=== PATIENT | male | born 1980 | race Caucasian/White ===

== ENCOUNTER → 2016-11-24 | Day surgery (SDC) | payer MEDICARE, OTHER ==
[~2016-11-24] MED LIST: ACETAMINOPHEN PO; ADVAIR 100-501 EAC1; ALBUTEROL17 GM; ALBUTEROL17 GM INH; ALBUTEROL20 ml INH; ALLOPURINOL300 MG PO; ALPRAZOLAM PO; AMBIEN PO; AMLODIPINE BESYL5 MG PO; ANEXSIA 5/325 M1 TA1 PO; ANTI-DIARRHEAL2 M1 PO; ATIVAN; ATIVAN0.5 MG PO; AZITHROMYCIN250 MG PO; B-121000 MC1 PO; BACTRIM DS TABL1 TA1 PO; BENZONATATE PO; CELEXA PO; CLONIDINE HCL0.1 MG PO; COLACE PO; COMBIVENT INH14.7 GM INH; COMBIVENT MININEB INH; COMBIVENT RESPIM4 GM INH; COMBIVENT U/D3 M2 INH; COREG3.125 MG PO; COZAAR100 MG PO; DARVOCET-N 1001 TAB PO; DEPAKOTE PO; DIVALPROEX SOD500 M1 PO; DOXYCYCLINE HY100 M1 PO; DULERA 100 MCG/13 GM IH; DULOXETINE HCL60 MG PO; FUROSEMIDE40 MG PO; HUMIBID-LA600 MG DOB; HYDROCODON-ACE1 EAC5 PO; IMDUR-ER60 M1 PO; IMDUR-ER60 M2 PO; IMDUR-ER60 MG PO; IMODIUM2 MG PO; KCL PO; KETOPROFEN PO; KLONOPIN PO; LASIX PO; LASIX20 MG PO; LAXATIVE8.6 M1 PO; LIPITOR20 MG PO; LISINOPRIL10 MG PO; LISINOPRIL20 MG PO; LORTAB 10-3251 EACH PO; LORTAB 5/500 TA1 TA1 PO; LORTAB 7.5-5001 TAB PO; LOSARTAN POTAS100 MG PO; METFORMIN HCL500 M1 PO; METOPROLOL SUCC25 MG PO; MIDRIN CAPSULE1 CAP PO; MILK OF MAGNESIA PO; MOBIC PO; NEURONTIN PO; NEURONTIN600 MG PO; NO MEDICATIONS; NORCO 10-325 TA1 TAB PO; NORFLEX100 M1 PO; NORVASC10 MG PO; NOT TAKING MEDS; OMEPRAZOLE40 M1; OMEPRAZOLE40 M1 PO; OMEPRAZOLE40 MG PO; PANTOPRAZOLE SO40 MG PO; PHENERGAN PO; PLAVIX PO; POTASSIUM CHLO20 ME1 PO; PREDNISONE; PREDNISONE PO; PREDNISONE1 MG PO; PREDNISONE10 MG PO; PREDNISONE10 MG/DOSE PO; PRILOSEC PO; PRILOSEC20 M1 PO; PRILOSEC20 MG PO; PRINIVIL40 MG PO; PROAIR HFA8.5 GM; PROAIR HFA8.5 GM IH; PROAIR HFA8.5 GM INH; PROPRANOLOL PO; PROTONIX PO; PROTONIX40 M1 PO; QVAR7.3 GM; RISPERDAL2 MG PO; RISPERIDONE2 MG PO; SAPHRIS10 MG SL; SAPHRIS5 MG SL; SENOKOT TO GO8.6 MG PO; SEROQUEL PO; SINGULAIR PO; SYMBICORT; SYMBICORT 160/4.6 G1 IH; SYMBICORT 160/4.6 GM INH; SYMBICORT INH; SYMBICORT PO; TEGRETOL PO; THORAZINE PO; TRAZODONE PO; TUMS500 M1 PO; TUMS500 MG PO; VALPROIC ACID PO; VISTARIL PO; VISTARIL50 MG PO; VITAMIN B122500 MCG PO; VOLTAREN75 MG PO; ZITHROMAX; ZITHROMAX PO; ZYLOPRIM PO; ZYLOPRIM100 MG PO; [UNRECOGNIZED DRUG - OTHER]
--- NOTE | ~2016-11-24 | OR ---
Unit #: [id number] #: [id number] Patient: TRICE PHELPS [id number] [address] [address] [id number] O MR#: [id number] NAME: TRICE PHELPS ROOM: Date of Procedure: 11/24/2016 Admission Date: 11/24/2016 Surgeon: Mohit Reagan M.D. : 1980 Attending Physician: Mohit Reagan M.D. OPERATIVE REPORT PREOPERATIVE DIAGNOSES Dyspepsia and retrosternal heartburn as well as epigastric pain. In addition, the patient also needs a colonoscopy because he has history of hematochezia and lower abdominal pain. PROCEDURES PERFORMED Upper gastrointestinal endoscopy and biopsy as well as colonoscopy with biopsies. POSTOPERATIVE DIAGNOSES For upper endoscopy: 1. 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 2. Mild prepyloric antral erosive gastritis. This was in the form of patchy focal erythema and erosions. 3. Rest of the examination up to third part of duodenum was normal. For colonoscopy: Completely normal examination up to cecum and terminal ileum. The quality of the prep was excellent. Multiple random colonic biopsies were obtained from throughout the colon to rule out microscopic and collagenous colitis. RECOMMENDATIONS The patient will continue on pantoprazole once a day. He will be followed up in the office in 3 months' time along with the results of biopsies. SEDATION USED MAC. DESCRIPTION OF PROCEDURE Following detailed explanation of potential risks and complications of an upper endoscopy and a colonoscopy, namely perforation, bleeding, and complications related to sedation, the patient was brought to GI lab and laid in the left lateral decubitus position. Lubricated tip of the Olympus video upper endoscope was passed through the bite block into the proximal esophagus under direct vision. 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 These were in the form of tongues of columnar mucosa ascending above the gastroesophageal junction. The scope was then advanced into the gastric cavity and the latter was insufflated. Mucosa of the fundus, body, and antrum was examined and moderate patchy erythema erosions noted in the antral area. Pylorus was intubated with visualization of the normal duodenal bulb and second and third part of Unit #: [id number] #: [id number] Patient: TRICE PHELPS duodenum. Upon withdrawal and retroflexion, incisura, cardia, and greater curve was examined and a biopsy was obtained from the antrum for CLOtest. The scope was then withdrawn in the distal esophagus. Multiple biopsies were obtained from the distal esophageal mucosa from the Zaidi segment and sent for histology. The entire esophageal mucosa was examined all the way up to pharynx. No additional findings were noted. The examination table was then turned by 180 degrees and the patient positioned for a colonoscopy. A digital rectal examination was performed, which was normal. Lubricated tip of the Olympus video colonoscope was inserted through the anus and advanced under direct vision. The scope was advanced past rectosigmoid into descending colon. No diverticula were seen in this area. The scope tip was then navigated all the way up to cecum with visualization of the ileocecal valve and the appendiceal orifice. Preparation was excellent with good visualization and photodocumentation was obtained. Last several inches of terminal ileum were also visualized after intubation of the ileocecal valve and appeared normal. Successive segments of the colonic mucosa were examined upon withdrawal and appeared unremarkable. There being no polyps, mass lesions, AVMs, or diverticula. The patient did not have any hemorrhoids at the anal verge. Multiple random colonic biopsies were obtained from throughout the colon to rule out microscopic or collagenous colitis. The scope was then withdrawn. The patient returned to the recovery area. He tolerated the procedure without any postprocedure complications. Dictated by... Lester Bolivar/neyda TD: 11/24/2016 16:56 JOB #: [id number] CC: Yessenia Zarco M.D. OPERATIVE REPORT X Mohit Reagan MD X PROCEDURE OPERATIVE NOTE
--- NOTE | ~2016-11-24 | CO ---
Unit #: [id number] #: [id number] Patient: STANLEY PHELPS [id number] [facility]. [place], [place] [address] [id number] O MR#: [id number] NAME: STANLEY PHELPS ROOM: Age: 36 Sex: M Admission Date: 11/24/2016 : 1980 Attending Physician: oMhit Reagan M.D. Primary Care Physician: Generic Doctor Not In System Consultation Date: 11/23/2016 CONSULTATION REPORT REASON FOR CONSULTATION Depression and anxiety. HISTORY OF PRESENT ILLNESS Mr. Stanley Phelps is a 36-year-old male, seen on 11/23/2016. The patient seen in room 567 at [facility]. The patient was admitted with the abdominal pain, nausea, vomiting. The patient reported that he was having lot of problem with the anxiety, history of depression, but currently denied any suicidal or homicidal ideation. Denied any psychotic symptom, but reported history of depression and severe anxiety. PAST PSYCHIATRIC HISTORY Remarkable for history of depression, anxiety, bipolar disorder. History of previous treatment at [facility], last treatment on 07/11/[address] [facility] diagnosed with bipolar mood disorder, cannabis abuse, alcohol abuse, antisocial borderline traits. PAST MEDICAL HISTORY Remarkable for history of COPD, pulmonary hypertension, respiratory failure, obstructive sleep apnea noncompliant with CPAP, cerebrovascular accident, chronic headache, gout, hypertension, GERD. MEDICATIONS The patient is on Lantus, insulin, Lasix, metformin, Prilosec, Norvasc, Plavix, prednisone, and metoprolol. FAMILY HISTORY AND SOCIAL HISTORY The patient has a good support from the family. No history of any abuse. No history of any substance abuse, but in the past the patient has used alcohol. MENTAL STATUS EXAMINATION General appearance, the patient dressed casually, tall, well built. Attention span and concentration, fair. Speech, regular rate and coherent. Oriented in time, place, and person. Mood and affect were sad, dysphoric, anxious. Thought process was coherent and goal directed. Thought content, the patient denied any thoughts of harming self or others. Denied any psychotic symptom. Recent and remote memory, fair. Language, able to name object, repeat phrases. Fund of knowledge, fair. Insight and judgment, fair to slightly impaired. DIAGNOSES Psychiatric: Bipolar mood disorder, not otherwise specified; alcohol use disorder, in remission. Unit #: [id number] #: [id number] Patient: STANLEY PHELPS Secondary diagnosis: Deferred. Medical diagnosis: Please refer to H and P. Stressors: Psychosocial stressors. ASSESSMENT AND PLAN 1. Supportive psychotherapy and psychoeducation provided to the patient. 2. Educated about benefits and side effects of medication and course and prognosis of illness. The patient was given a week supply of Ativan 0.5 mg t.i.d. and advised the patient to follow up in outpatient program at [facility]. The patient was also given crisis line [phone]. Please feel free to call if any questions, telephone #[phone]. Dictated by... Lester Nunes/neyda TD: 11/25/2016 00:10 JOB #: [id number] CONSULTATION REPORT X Dixon Delgado MD X CONSULTATION REPORT
== END | disposition home or self-care (01) ==
LOC: COPS 06:07
DX: K20.9 Esophagitis, unspecified (principal); L85.9 Epidermal thickening, unspecified; K29.00 Acute gastritis without bleeding; J44.9 Chronic obstructive pulmonary disease, unspecified; J45.909 Unspecified asthma, uncomplicated; N17.9 Acute kidney failure, unspecified; I11.0 Hypertensive heart disease with heart failure; I50.9 Heart failure, unspecified; E11.9 Type 2 diabetes mellitus without complications; M19.90 Unspecified osteoarthritis, unspecified site; E78.5 Hyperlipidemia, unspecified; Z98.890 Other specified postprocedural states; Z88.8 Allergy status to other drugs, medicaments and biological substances; Z88.0 Allergy status to penicillin; Z79.899 Other long term (current) drug therapy
CPT/HCPCS: 82947; 87077; 88305; J2250

== ENCOUNTER 2017-01-07 00:11 | Inpatient (IN) | payer MEDICARE, OTHER ==
--- NOTE | ~2017-01-07 | DS ---
Unit #: [id number] #: [id number] Patient: STANLEY PHELPS [id number] [facility] [address] [place] [address] [id number] I MR#: [id number] NAME: STANLEY PHELPS ROOM: [facility] Age: 36 Sex: M Admission Date: 01/07/2017 : 1980 Discharge Date: 01/11/2017 Attending Physician: Tray Burden M.D. Primary Care Physician: Winter Teresa M.D. DISCHARGE SUMMARY REASON FOR ADMISSION Stanley is a 36-year-old man with multiple admissions to this facility for mood disorder and behavior problems. He reported suicidal ideation and could not contract for safety. After he was medically stabilized, he was transferred to [facility]. HOSPITAL COURSE Patient was admitted and placed on suicide precautions. He was rather entitled and demanding, insisting that he be given a private room and other issues on the unit which he did not clinically require. He started on Vraylar 3 mg at bedtime for mood stability, given he had had minimal success with other medications and lacking experience with this medication. Norvasc, Lasix and potassium supplement were also continued with good benefit. His irritability improved on the date of discharge. He was able to contract for safety in the outpatient setting. DISCHARGE DIAGNOSES AXIS I: Bipolar depressed. AXIS II: Antisocial traits. AXIS III: Hypertension. Multiple other medical issues currently not in treatment. INSTRUCTIONS TO PATIENT Follow up with [facility] and primary care physician. DISCHARGE MEDICATIONS 1. Vraylar 3 mg at bedtime for mood stability. 2. Primary care medicines were Norvasc 10 mg daily for hypertension, Lasix 20 mg daily for hypertension, Klor-Con 10 mEq daily for potassium replacement. CONDITION ON DISCHARGE Improved. PROGNOSIS Fair. DIET AND ACTIVITY Ad casie. Unit #: [id number] #: [id number] Patient: STANLEY PHELPS Dictated by... Lester Perez/petra TD: 02/25/2017 08:38 JOB #: [id number] DISCHARGE SUMMARY Page 1 of 1 X Tray Burden MD X DISCHARGE SUMMARY
--- NOTE | ~2017-01-07 | EKG ---
PATIENT: TRICE PHELPS UNIT #: [id number] Ventricular Rate: 77 BPM Atrial Rate: 77 BPM P-R Interval: 136 ms QRS Duration: 96 ms Q-T Interval: 386 ms QTC Calculation(Bezet): 436 ms P Appleton: 55 degrees Calculated R Appleton: 60 degrees Calculated T Appleton: 43 degrees Diagnosis Line: Normal sinus rhythm Diagnosis Line: Normal ECG Diagnosis Line: Diagnosis Line: Confirmed by JAIME ROSARIO MD ([id number]) on 01/09/2017 Diagnosis Line: 7:16:10 PM INTERPRETING MD: MARLENE CONKLIN
--- NOTE | ~2017-01-07 | HP ---
Unit #: [id number] #: [id number] Patient: STANLEY PHELPS [id number] [facility] [address] [place] [address] [id number] MR#: [id number] NAME: STANLEY PHELPS ROOM: P211 Age: 36 Sex: M Admission Date: 01/07/2017 : 1980 Attending Physician: Tray Burden M.D. Admitting Physician: Tray Burden M.D. Primary Care Physician: Winter Teresa M.D. HISTORY AND PHYSICAL HISTORY OF PRESENT ILLNESS Stanley is a 36 year old admitted to [address] [place] [address] with depression and verbalizing wanting to hurt himself. PAST MEDICAL HISTORY 1. Long history of polysubstance abuse 2. High blood pressure 3. Obesity 4. History of migraine headaches 5. History of thrombolytic CVAs 6. History of gout 7. Asthma PAST SURGICAL HISTORY 1. Skin graph left finger 2. Left knee 3. Fractured right wrist with ORIF ALLERGIES Penicillin, aspirin, Benadryl (anaphylaxis) SOCIAL HISTORY Smokes one-half pack per day. Has a history of alcohol abuse but denies anything currently. FAMILY HISTORY Medically noncontributory. REVIEW OF SYSTEMS CONSTITUTIONAL: No fever or chills. HEENT: Denies any sore throat, ear pain or runny nose. CARDIOVASCULAR: Denies chest pain, irregular heart rhythm or palpitations. CHEST: Denies shortness of breath or cough. No hemoptysis. GASTROINTESTINAL: Denies nausea, vomiting, diarrhea or chronic constipation. ENDOCRINE: Denies history of increased thirst or urination. No recent significant weight loss or gain. GENITOURINARY: Denies dysuria, frequency, or hematuria. SKIN: Denies any rashes. HEMATOLOGIC: Denies history of increased bleeding or bruising. Unit #: [id number] #: [id number] Patient: STANLEY PHELPS MUSCULOSKELETAL: Denies any hot, swollen joints. No generalized muscle pain. NEUROLOGIC: Denies problems with vision or speech. No frequent, severe headaches. No numbness, tingling or weakness in any extremities. Denies loss of bladder or bowel control. CURRENT MEDICATIONS 1. Norvasc 10 mg q day 2. Vraylar 3 mg q.h.s. 3. Thorazine p.r.n. 4. Proventil inhaler p.r.n. 5. Nicotine patch 14 mg q day 6. Milk of Magnesia p.r.n. 7. Maalox p.r.n. 8. Tylenol p.r.n. PHYSICAL EXAMINATION GENERAL: Alert, obese, in no apparent distress. VITAL SIGNS: Blood pressure 120/62, heart rate 80, respirations 16, temperature 98.6. WEIGHT: 305 pounds. HEIGHT: 6'3". SKIN: Warm and dry without rash or lesion. HEENT: Normocephalic. TMs not viewed. Oral and nasal passages clear. Conjunctivae clear. Pupils equal, round and reactive to light and accommodation. Extraocular movements intact. NECK: Supple without lymphadenopathy or thyromegaly. HEART: Regular rate and rhythm without murmur. LUNGS: Clear. ABDOMEN: Soft, nontender. : Not done. EXTREMITIES: No evidence of cyanosis, clubbing or edema. Moves all extremities without focal deficit. NEUROLOGICAL: Grossly within normal limits. Cranial Nerves: II: Visual xiao are intact. III, IV AND : Extraocular movements are intact. Pupils are equal, round and reactive to light. V: Facial sensation is grossly normal. VII: Facial movements and expression are normal. VIII: Auditory acuity grossly intact. IX, X: Uvula is midline. Phonation is normal. XI: Patient shrugs shoulders and turns head normally. XII: Tongue protrudes in the midline. Sensory and Motor Function: Sensory and motor sensation is grossly normal. Motor: moves all extremities well. Coordination: Gait is normal. Deep Tendon Reflexes: Intact. IMPRESSION Psychiatric admission RECOMMENDATIONS PSYCHIATRIC: Per psychiatrist. MEDICAL: I see no contraindications to participating in facility's activities. MEDICAL PROGNOSIS Good. MEDICAL CONDITION Unit #: [id number] #: [id number] Patient: STANLEY PHELPS Stable. Dictated by... Fran Hobson/judith TD: 01/07/2017 20:47 JOB #: [id number] HISTORY AND PHYSICAL Page 1 of 1 X Mary Garcia HISTORY AND PHYSICAL
--- NOTE | ~2017-01-07 | PA ---
Unit #: [id number] #: [id number] Patient: TRICE PHELPS [id number] [facility] [address] [place] [address] [id number] I MR#: [id number] NAME: TRICE PHELPS ROOM: P211 Age: 36 Sex: M Admission Date: 01/07/2017 : 1980 Date of Assessment: 01/07/2017 Attending Physician: Tray Burden M.D. Admitting Physician: Tray Burden M.D. Primary Care Physician: Winter Teresa M.D. PSYCHIATRIC ASSESSMENT INFORMANTS Patient, partially reliable; OLOP, reliable. CHIEF COMPLAINT "I wanted to give up". HISTORY OF PRESENT ILLNESS The patient is a 36-year-old man with a history of bipolar disorder and drug abuse. He said that he started using "a drug I have never used before" that he could not identify and it made him start to hallucinate. He planned to overdose again on this drug in an attempt to kill himself. He was unable to contract for safety and was admitted for stabilization. PAST PSYCHIATRIC HISTORY The patient has been admitted to this hospital multiple times since adolescence. His last known admission was in July of 2016. He has also been admitted to the [facility] for chemical dependence and psychiatric issues. FAMILY PSYCHIATRIC HISTORY Denied. SOCIAL HISTORY The patient has been in mental healthcare since early age and had multiple foster care and residential placements growing up due to his behavioral problems. He is single with no children and has been incarcerated and on probation in the past. He has been using "ice" recently. PAST MEDICAL HISTORY 1. Asthma. 2. Obesity. 3. Hypertension. MEDICATIONS Please see MAR. ALLERGIES Penicillin, Benadryl, aspirin, ibuprofen, broccoli, and fish containing products. SUBSTANCE ABUSE HISTORY As noted, the patient has a history of abusing alcohol and cannabis and has experimented with cocaine and opiates. He has recently been using Unit #: [id number] #: [id number] Patient: TRICE PHELPS amphetamines. MENTAL STATUS EXAMINATION The patient presented as a disheveled man, who appeared older than his stated age. He was irritable and cooperative with the examination. Speech was spontaneous and easily understood. Musculoskeletal examination was calm. His mood was labile and irritable with a congruent affect. He was alert and fully oriented. His memory and concentration were fair. His thought processes were goal directed with no active psychosis, although he had reported hallucinations prior to admission. He reports suicidal ideation with a plan to overdose on drugs. Insight and judgment were fair. Fund of knowledge and abstraction were fair. ASSETS AND LIABILITIES The patient knows local resources and comes voluntarily for treatment. Liabilities include poor coping skills and erratic compliance. ADMITTING DIAGNOSES AXIS I: Bipolar, depressed. Amphetamine abuse. History of cannabis and alcohol abuse. AXIS II: Antisocial and borderline traits. AXIS III: Hypertension. Diabetes. GERD. Asthma. Possible CHF. AXIS IV: AXIS V: PSYCHIATRIC PLAN The patient was admitted and placed on suicide precautions. He did not appear to be in active detox and Vraylar 3 mg at bedtime was started for mood stability. He will enroll in psychotherapy groups, and activities. Physical examination and laboratory studies will be ordered and reviewed. TREATMENT GOALS Resolution of SI, improvement in insight, and improvement in coping skills. DISCHARGE PLANNING Follow up with [facility]. ESTIMATED LENGTH OF STAY 5 days. Dictated by... Tray Burden M.D. DOMENICO/neyda TD: 02/23/2017 16:08 JOB #: [id number] Unit #: [id number] #: [id number] Patient: TRICE PHELPS PSYCHIATRIC ASSESSMENT Page 1 of 1 X Tray Burden MD X PSYCHIATRIC ASSESSMENT
[~2017-01-07 00:11] MED LIST changes: -NO MEDICATIONS; -NOT TAKING MEDS; -OMEPRAZOLE40 M1; -PRILOSEC PO; -PROTONIX40 M1 PO
[2017-01-08 09:42] LABS: BASOPHIL% 0.4 % (0-2.5); EOSINOPHIL# 0.1 X10e3 (0-0.7); EOSINOPHIL% 0.6 % (0.0-7.0); HEMATOCRIT 45.3 % (38.0-50.0); HEMOGLOBIN 14.7 gm/dL (13.0-16.0); LYMPHOCYTE# 3.9 X10e3 (1.0-3.5); MEAN CELL VOLUME 87.7 FL (83-96); MEAN CORPUSCULAR HEMOGLOBIN 28.6 PG (28-34); MEAN CORPUSCULAR HGB CONC 32.6 g/dL (30-36); MEAN PLATELET VOLUME 9.1 FL (6.5-11.5); MONOCYTE# 0.8 X10e3 (0-1.0); NEUTROPHIL# 6.4 X10e3 (1.5-7.1); PLATELET COUNT 230 X10e3 (140-420); RED BLOOD COUNT 5.16 X10e (3.90-5.60); RED CELL DISTRIBUTION WIDTH 15.8 % (11.0-15.5); WHITE BLOOD COUNT 11.3 X10e3 (4.0-10.5)
[2017-01-08 10:11] LABS: URINE APPEARANCE TURBID; URINE BILIRUBIN NEG (NEG); URINE BLOOD NEG (NEG); URINE COLOR YELLOW; URINE GLUCOSE NEG (NEG); URINE KETONE NEG (NEG); URINE LEUKOCYTE ESTERASE NEG (NEG); URINE NITRATE NEG (NEG); URINE PH 5.5 (5-8); URINE PROTEIN NEG (NEG); URINE SPECIFIC GRAVITY 1.018 (1.003-1.035); URINE UROBILINOGEN 0.2 MG/DL (NEG)
[2017-01-08 10:12] LABS: THYROID STIMULATING HORMONE 0.57 uIU/ml (0.34-5.60)
[2017-01-08 10:18] LABS: FREE THYROXIN (T4) 0.73 ng/dL (0.58-1.64)
[2017-01-08 10:21] LABS: ALBUMIN SERUM 3.6 g/dL (3.5-5.0); BILIRUBIN,TOTAL 0.4 mg/dL (0.2-2.0); CALCIUM SERUM 8.8 mg/dL (8.4-10.2); CREATININE SERUM 0.9 mg/dL (0.6-1.4); GLOM FILT RATE Estimated 108.7 mL/min (>60); POTASSIUM 4.1 mmol/L (3.5-5.1); PROTEIN TOTAL SERUM 6.3 g/dL (6.0-8.3)
[2017-01-08 10:23] LABS: DIFF IND NO
[2017-01-08 10:44] LABS: AMPHETAMINE POS (NEG); BARBITURATES NEG (NEG); BENZODIAZEPINES NEG (NEG); COCAINE NEG (NEG); MARIJUANA POS (NEG); OPIATES NEG (NEG); TRICYCLIC ANTIDEPRESSANTS NEG (NEG); U METHADONE NEG (NEG)
[2017-06-04] MEDS ORDERED: NOT TAKING MEDS (13:26)
[2017-06-15] MEDS ORDERED: NO MEDICATIONS (07:07)
[2017-06-15] MEDS ORDERED: PRILOSEC PO (07:07)
[2017-06-15] MEDS ORDERED: OMEPRAZOLE40 M1 (08:39)
== END 2017-01-11 13:15 | disposition home or self-care (01) | DRG 885 ==
LOC: P2S 00:11
PROVIDERS: Psychiatry & Neurology Psychiatry
DX: F31.9 Bipolar disorder, unspecified (principal); I10 Essential (primary) hypertension; E66.9 Obesity, unspecified; J45.909 Unspecified asthma, uncomplicated; Z88.0 Allergy status to penicillin; F17.210 Nicotine dependence, cigarettes, uncomplicated; Z68.38 Body mass index [BMI] 38.0-38.9, adult
CPT/HCPCS: 36415; 80048; 80053; 80076; 80307; 81003; 82947; 84439; 84443; 85025; 93005; 94644; 96374; 96375; 99285; G0480; J2060; J2930

== ENCOUNTER 2017-01-22 14:00 | Observation (INO) | payer MEDICARE, OTHER ==
--- NOTE | ~2017-01-22 | EKG ---
PATIENT: TRICE PHELPS UNIT #: [id number] Ventricular Rate: 49 BPM Atrial Rate: 49 BPM P-R Interval: 142 ms QRS Duration: 92 ms Q-T Interval: 410 ms QTC Calculation(Bezet): 370 ms P Cecil: 50 degrees Calculated R Cecil: 53 degrees Calculated T Cecil: 44 degrees Diagnosis Line: Marked sinus bradycardia with sinus arrhythmia Diagnosis Line: Normal ECG Diagnosis Line: When compared with ECG of 22-JAN-2017 13:46, Diagnosis Line: Vent. rate has decreased BY 30 BPM Diagnosis Line: QT has shortened Diagnosis Line: Confirmed by BARBY SMITH MD ([id number]) on 01/29/2017 Diagnosis Line: 11:44:04 AM INTERPRETING MD: SARAH CONKLIN
--- NOTE | ~2017-01-22 | HP ---
Unit #: [id number] #: [id number] Patient: TRICE PHELPS [id number] [address] [place], [place] [address] [id number] I MR#: [id number] NAME: TRICE PHELPS ROOM: 305 Age: 36 Sex: M Admission Date: 01/22/2017 : 1980 Attending Physician: Girish Puente M.D. Primary Care Physician: Winter Teresa M.D. HISTORY AND PHYSICAL ADDENDUM We have received a fax from [facility] regarding a 23-hour observation stay there on 10/26/2016, discharged on 10/28/2016. The records indicated that he presented with a cough and shortness of breath for 1 1/2 weeks. Apparently, he had been there earlier in the month of October and had left AMA. He returned with a complaint of chest pain and completed a Cardiolite stress test. This was subpar imaging due to movement and left heart catheterization was then suggested and completed. The records indicate that he has normal coronary arteries with normal LV systolic function. The Cardiolite stress test is noted to have an anterolateral defect that cannot be excluded stress-induced ischemia. Calculated ejection fraction of 67%. He was found to have noncardiac chest pain and was recommended followup with his primary care physician after discharge. It is noted, as well, that he was discharged on several medications including Symbicort, Lasix, albuterol, Imdur, Cozaar, Glucophage, Norflex, Protonix, and RisperDAL. It appears as though he has not been taking those as he states that he has only been taking some prednisone and Norvasc at home. See previous for current discharge medications today. To be a little bit more specific regarding the left heart catheterization, it is noted that the LV pressure 110/25-30, AO pressure 95/65. Left main free of disease. LAD very minimal luminal irregularity in the area of the first septal education director. Left circumflex gives rise to large first marginal, which bifurcates in a large second marginal. This vessel also bifurcates distally. The left circumflex is normal. RCA large, dominant, and normal. LV: Normal LV function. Dictated by Pieter Munoz/gal TD: 01/23/2017 12:11 JOB #: [id number] Unit #: [id number] #: [id number] Patient: TRICE PHELPS HISTORY AND PHYSICAL Page 1 of 1 X X HISTORY AND PHYSICAL
--- NOTE | ~2017-01-22 | CT71 ---
[facility] A Service of [facility] RADIOLOGY TEXT RESULTS PATIENT: TRICE PHELPS LOCATION: [facility] 305-01 : [birth year] UNIT #: [id number] AGE: [address]: Girish Puente MD SEX: M ORDER DR: [id number] [facility] [address] [facility]. [place], [place] [address] [id number] MR#: [id number] Acc #: [id number] NAME: TRICE PHELPS : 1980 SEX: M STUDY DATE/TIME: 01/22/2017 15:29 UNIT: OBI ROOM: STUDY DESCRIPTION: CT Head Wo Contrast Attending Physician: Rosanne Gonzalez M.D. Ordering Physician: Evans Ballard M.D. Primary Care Physician: Winter Teresa M.D. MEDICAL IMAGING REPORT This report is preliminary unless electronic signature is present EXAM Head CT without contrast HISTORY Syncopal episode today with unsteady gait and weakness COMPARISON 09/29/2016 TECHNIQUE Axial images were obtained without contrast. This CT exam was performed with one or more of the following radiation dose reduction techniques: automatic control, adjustment of mA and/or kV according to patient size, and iterative reconstruction. FINDINGS Mild atrophy is noted. There is no evidence of mass, hemorrhage or edema. No midline shift is seen. Extraaxial structures are unremarkable. No changes are noted since the previous exam. IMPRESSION Mild generalized atrophy. No change from the previous exam. No acute findings Dictated by... Aram Ledezma M.D. THIS IS AN ELECTRONICALLY VERIFIED REPORT Aram Ledezma M.D. at 01/22/2017 10:17 PM RLF/malia TD: 01/22/2017 16:47 JOB #: [id number] [facility] A Service of [facility] RADIOLOGY TEXT RESULTS PATIENT: TRICE PHELPS LOCATION: [facility] 305- : [birth year] UNIT #: [id number] AGE: [address]: Girish Puente MD SEX: M ORDER DR: MEDICAL IMAGING REPORT Page 1 of 1 COPY
--- NOTE | ~2017-01-22 | CR72 ---
[facility] A Service of [facility] & [facility] RADIOLOGY TEXT RESULTS PATIENT: TRICE PHELPS LOCATION: [facility] : [birth year] UNIT #: [id number] AGE: [address]: Robin Gonzalez MD SEX: M ORDER DR: [id number] [facility] [address] [place], [place] [address] [id number] E MR#: [id number] Acc #: [id number] NAME: TRICE PHELPS : 1980 SEX: M STUDY DATE/TIME: 01/22/2017 13:52 UNIT: [facility] ROOM: STUDY DESCRIPTION: CR Chest Single View Portable Attending Physician: Domingo Gonzalez M.D. Ordering Physician: [facility] Primary Care Physician: Winter Teresa M.D. MEDICAL IMAGING REPORT This report is preliminary unless electronic signature is present EXAM AP chest 01/22/2017 COMPARISON STUDIES 11/19/2016 HISTORY Syncopal episode, shortness of breath chest pain for 2 days. FINDINGS AP view is obtained. The cardiovascular configuration is stable. Lungs are clear. Compared with 11/19/2016 there has been no change. CONCLUSION No active disease. Dictated by... Hunter Lizarraga M.D. THIS IS AN ELECTRONICALLY VERIFIED REPORT Hunter Lizarraga M.D. at 01/22/2017 5:04 PM TAMIKO/carlene TD: 01/22/2017 15:25 JOB #: [id number] MEDICAL IMAGING REPORT Page 1 of 1 COPY
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
--- NOTE | ~2017-01-22 | EKG ---
PATIENT: TRICE PHELPS UNIT #: [id number] Ventricular Rate: 79 BPM Atrial Rate: 79 BPM P-R Interval: 140 ms QRS Duration: 92 ms Q-T Interval: 390 ms QTC Calculation(Bezet): 447 ms P [place]: 56 degrees Calculated R [place]: 44 degrees Calculated T [place]: 31 degrees Diagnosis Line: Normal sinus rhythm Diagnosis Line: Normal ECG Diagnosis Line: When compared with ECG of 08-JAN-2017 17:35, Diagnosis Line: No significant change was found Diagnosis Line: Confirmed by ARACELI LONDON MD ([id number]) on Diagnosis Line: 01/22/2017 9:37:37 PM INTERPRETING MD: DAMARIS
[2017-01-22 13:59] LABS: BASOPHIL# 0.1 X10e3 (0-0.3); DIFF IND NO; EOSINOPHIL# 0.4 X10e3 (0-0.7); EOSINOPHIL% 5.2 % (0.0-7.0); HEMATOCRIT 41.3 % (38.0-50.0); HEMOGLOBIN 13.9 gm/dL (13.0-16.0); LYMPHOCYTE# 3.3 X10e3 (1.0-3.5); LYMPHOCYTE% 40.3 % (17.0-45.0); MEAN CELL VOLUME 86.4 FL (83-96); MEAN CORPUSCULAR HEMOGLOBIN 29.1 PG (28-34); MEAN CORPUSCULAR HGB CONC 33.7 g/dL (30-36); MEAN PLATELET VOLUME 8.8 FL (6.5-11.5); MONOCYTE# 0.6 X10e3 (0-1.0); MONOCYTE% 7.8 % (3.0-12.0); NEUTROPHIL# 3.7 X10e3 (1.5-7.1); NEUTROPHIL% 45.7 % (40-75); PLATELET COUNT 237 X10e3 (140-420); RED BLOOD COUNT 4.78 X10e (3.90-5.60); RED CELL DISTRIBUTION WIDTH 15.4 % (11.0-15.5); WHITE BLOOD COUNT 8.2 X10e3 (4.0-10.5)
[2017-01-22 14:36] LABS: BUN/CREATININE RATIO 8.88; CALCIUM SERUM 9.1 mg/dL (8.4-10.2); CREATININE SERUM 0.9 mg/dL (0.6-1.4); GLOM FILT RATE Estimated 108.7 mL/min (>60); POTASSIUM 3.3 mmol/L (3.5-5.1)
[2017-01-22 15:42] LABS: POC - CKMB <1.0 ng/mL (0.0-7.9); POC - TROPONIN <0.05 ng/mL (<=0.05)
[2017-01-22 15:44] LABS: POC - CKMB <1.0 ng/mL (0.0-7.9); POC - TROPONIN <0.05 ng/mL (<=0.05)
[2017-01-22 16:17] LABS: URINE SOURCE CLEAN CATCH
[2017-01-22 16:24] LABS: POC - CKMB <1.0 ng/mL (0.0-7.9); POC - TROPONIN <0.05 ng/mL (<=0.05)
[2017-01-22] MEDS ORDERED: NO MEDICATIONS (16:27)
[2017-01-22 16:31] LABS: AMPHETAMINE NEG (NEG); BARBITURATES NEG (NEG); BENZODIAZEPINES NEG (NEG); COCAINE NEG (NEG); MARIJUANA POS (NEG); OPIATES NEG (NEG); TRICYCLIC ANTIDEPRESSANTS NEG (NEG); U METHADONE NEG (NEG)
[2017-01-22 16:33] LABS: URINE APPEARANCE CLEAR; URINE BILIRUBIN NEG (NEG); URINE BLOOD NEG (NEG); URINE COLOR YELLOW; URINE GLUCOSE NEG (NEG); URINE KETONE TRACE (NEG); URINE LEUKOCYTE ESTERASE NEG (NEG); URINE NITRATE NEG (NEG); URINE PROTEIN NEG (NEG); URINE SPECIFIC GRAVITY 1.028 (1.003-1.035); URINE UROBILINOGEN 0.2 MG/DL (NEG)
[2017-01-23 04:43] LABS: CALCIUM SERUM 8.8 mg/dL (8.4-10.2); GLOM FILT RATE Estimated 95.7 mL/min (>60)
[2017-01-23] MEDS ORDERED: NORVASC10 MG PO (10:29)
[2017-01-23] MEDS ORDERED: PROTONIX40 M1 PO (10:29)
[2017-06-04] MEDS ORDERED: NOT TAKING MEDS (13:26)
[2017-06-15] MEDS ORDERED: PRILOSEC PO (07:07)
[2017-06-15] MEDS ORDERED: NO MEDICATIONS (07:07)
[2017-06-15] MEDS ORDERED: OMEPRAZOLE40 M1 (08:39)
== END 2017-01-23 12:09 | disposition home or self-care (01) ==
LOC: CED 14:00 → CEDOF 15:50 → C3A PCU 18:27
PROVIDERS: Emergency Medicine
DX: R55 Syncope and collapse (principal); Z91.19 Patient's noncompliance with other medical treatment and regimen; F19.10 Other psychoactive substance abuse, uncomplicated; I10 Essential (primary) hypertension; J44.9 Chronic obstructive pulmonary disease, unspecified; K22.70 Barrett's esophagus without dysplasia; K29.70 Gastritis, unspecified, without bleeding; G47.33 Obstructive sleep apnea (adult) (pediatric); I69.354 Hemiplegia and hemiparesis following cerebral infarction affecting left non-dominant side; M19.90 Unspecified osteoarthritis, unspecified site; M10.9 Gout, unspecified; F17.210 Nicotine dependence, cigarettes, uncomplicated; Z88.8 Allergy status to other drugs, medicaments and biological substances; Z88.0 Allergy status to penicillin; Z88.6 Allergy status to analgesic agent; Z91.030 Bee allergy status
CPT/HCPCS: 36415; 70450; 71010; 80048; 80307; 81003; 82553; 82947; 84484; 85025; 85379; 93005; 99285; G0378

== ENCOUNTER 2017-05-28 10:07 | Emergency (ER) | payer MEDICARE, OTHER ==
[~2017-05-28] VITALS: Ht 190.5 cm; Wt 145.1 kg
--- NOTE | ~2017-05-28 | CR72 ---
[facility] A Service of [facility] & [facility] RADIOLOGY TEXT RESULTS PATIENT: TRICE PHELPS LOCATION: [facility] : [birth year] UNIT #: [id number] AGE: [address]: Robin Gonzalez MD SEX: M ORDER DR: [id number] [facility] [address] [place], [place] [address] [id number] MR#: [id number] Acc #: [id number] NAME: TRICE PHELPS : 1980 SEX: M STUDY DATE/TIME: 05/28/2017 11:22 UNIT: [facility] ROOM: STUDY DESCRIPTION: CR Chest Single View Portable Attending Physician: Domingo Gonzalez M.D. Ordering Physician: Ed Doc Lester Ballard Primary Care Physician: Winter Teresa M.D. MEDICAL IMAGING REPORT This report is preliminary unless electronic signature is present EXAM Chest, portable, 05/28/2017, 1122 hours. CLINICAL HISTORY 36-year-old man with 1-week history of chest pain and shortness of air. COMPARISON 01/22/2017 FINDINGS Portable upright chest demonstrates mild cardiomegaly unchanged. Mediastinal and hilar contours are normal. There is basilar vascular crowding without definite pneumonia, edema, effusion, or pneumothorax. IMPRESSION Stable mild cardiac prominence. There is basilar vascular crowding without definite edema, pneumonia, or pleural effusion. Dictated by... Bettye Damon M.D. THIS IS AN ELECTRONICALLY VERIFIED REPORT Bettye Damon M.D. at 05/28/2017 2:34 PM KEN/alvarez TD: 05/28/2017 14:10 JOB #: [id number] MEDICAL IMAGING REPORT Page 1 of 1 COPY
--- NOTE | ~2017-05-28 | EKG ---
PATIENT: TRICE PHELPS UNIT #: [id number] Ventricular Rate: 77 BPM Atrial Rate: 77 BPM P-R Interval: 130 ms QRS Duration: 90 ms Q-T Interval: 388 ms QTC Calculation(Bezet): 439 ms P [place]: 50 degrees Calculated R [place]: 48 degrees Calculated T [place]: 38 degrees Diagnosis Line: Normal sinus rhythm Diagnosis Line: Normal ECG Diagnosis Line: When compared with ECG of 23-JAN-2017 06:03, Diagnosis Line: Vent. rate has increased BY 28 BPM Diagnosis Line: QT has lengthened Diagnosis Line: Confirmed by JAIME ROSARIO MD ([id number]) on 05/29/2017 Diagnosis Line: 5:02:01 PM INTERPRETING MD: MARLENE CONKLIN
[~2017-05-28 10:07] MED LIST changes: +NO MEDICATIONS; +PROTONIX40 M1 PO
[2017-05-28 11:31] LABS: BASOPHIL# 0.1 X10e3 (0-0.3); EOSINOPHIL# 0.3 X10e3 (0-0.7); EOSINOPHIL% 4.3 % (0.0-7.0); HEMATOCRIT 43.4 % (38.0-50.0); LYMPHOCYTE# 3.1 X10e3 (1.0-3.5); LYMPHOCYTE% 44.7 % (17.0-45.0); MEAN CELL VOLUME 85.5 FL (83-96); MEAN CORPUSCULAR HEMOGLOBIN 29.5 PG (28-34); MEAN CORPUSCULAR HGB CONC 34.5 g/dL (30-36); MEAN PLATELET VOLUME 7.9 FL (6.5-11.5); MONOCYTE# 0.6 X10e3 (0-1.0); MONOCYTE% 8.8 % (3.0-12.0); NEUTROPHIL# 2.8 X10e3 (1.5-7.1); NEUTROPHIL% 41.2 % (40-75); PLATELET COUNT 241 X10e3 (140-420); RED BLOOD COUNT 5.08 X10e (3.90-5.60); RED CELL DISTRIBUTION WIDTH 14.4 % (11.0-15.5); WHITE BLOOD COUNT 6.8 X10e3 (4.0-10.5)
[2017-05-28 11:33] LABS: DIFF IND NO
[2017-05-28 11:46] LABS: POC - CKMB <1.0 ng/mL (0.0-7.9); POC - TROPONIN <0.05 ng/mL (<=0.05)
[2017-05-28 11:52] LABS: CALCIUM SERUM 8.7 mg/dL (8.4-10.2); GLOM FILT RATE Estimated 95.7 mL/min (>60); POTASSIUM 4.1 mmol/L (3.5-5.1)
[2017-06-04] MEDS ORDERED: NOT TAKING MEDS (13:26)
[2017-06-15] MEDS ORDERED: PRILOSEC PO (07:07)
[2017-06-15] MEDS ORDERED: NO MEDICATIONS (07:07)
[2017-06-15] MEDS ORDERED: OMEPRAZOLE40 M1 (08:39)
== END 2017-05-28 12:49 | disposition home or self-care (01) ==
LOC: CED 10:07
PROVIDERS: Emergency Medicine
DX: R07.89 Other chest pain (principal); K21.9 Gastro-esophageal reflux disease without esophagitis; J45.909 Unspecified asthma, uncomplicated; F31.9 Bipolar disorder, unspecified; Z88.0 Allergy status to penicillin; Z88.6 Allergy status to analgesic agent; Z91.030 Bee allergy status; Z79.899 Other long term (current) drug therapy
CPT/HCPCS: 36415; 71010; 80048; 82553; 84484; 85025; 93005; 94640; 96374; 99285; J1885

== ENCOUNTER → 2017-06-15 | Day surgery (SDC) | payer MEDICARE, OTHER ==
[~2017-06-15] MED LIST changes: +NOT TAKING MEDS; +OMEPRAZOLE40 M1; +PRILOSEC PO
--- NOTE | ~2017-06-15 | OR ---
Unit #: [id number] #: [id number] Patient: TRICE PHELPS [id number] [address] [address] [id number] MR#: [id number] NAME: TRICE PHELPS ROOM: Date of Procedure: 06/15/2017 Admission Date: 06/15/2017 Surgeon: Mohit Reagan M.D. : 1980 Attending Physician: Mohit Reagan M.D. Primary Care Physician: Anne Marie Dunham A.P.R.N. OPERATIVE REPORT PRIMARY CARE PHYSICIAN Anne Marie Dunham A.P.R.N. PREOPERATIVE DIAGNOSES Dysphagia, odynophagia, gastroesophageal reflux, and heartburn. PROCEDURES PERFORMED Upper gastrointestinal endoscopy and biopsy. POSTOPERATIVE DIAGNOSES 1. The patient had moderate distal erosive esophagitis with linear erosions ascending above the Z-line. 2. Small hiatus hernia. 3. Mild duodenitis involving the duodenal bulb. Biopsies were obtained from the antrum for CLOtest. No stricture or mucosal ring was seen. RECOMMENDATIONS 1. Continue omeprazole 40 mg p.o. b.i.d. 2. The patient will be followed up in the office in 3 months' time. SEDATION USED MAC. DESCRIPTION OF PROCEDURE Following detailed explanation of the potential risks and complications of an upper endoscopy, namely perforation, bleeding, and complications related to sedation, the patient was brought to GI lab and laid in the left lateral decubitus position. Lubricated tip of the Olympus video upper endoscope was passed through the bite block into the proximal esophagus under direct vision. The entire esophageal mucosa was examined. The patient was noted to have grade 2 distal erosive esophagitis with erosions ascending above the Z-line in the distal esophagus. In addition, a small hiatus hernia was noted. Mucosa of the fundus, body, and antrum was examined and appeared unremarkable. Pylorus was intubated with visualization of the duodenal bulb. The latter was noted to have mild focal patchy erosive duodenitis. Second and third part of duodenum were normal. Upon withdrawal and retroflexion; incisura, cardia, and greater curve was examined and biopsy was obtained from the antrum for CLOtest. The scope was then withdrawn in the distal esophagus. Entire esophageal mucosa was examined all the way up to pharynx and no additional findings were noted. The patient tolerated the procedure without any postprocedure complications. Unit #: [id number] #: [id number] Patient: TRICE PHELPS Dictated by..Lester Kapoor/neyda TD: 06/15/2017 11:21 JOB #: [id number] CC: Anne Marie Dunham A.P.R.N. OPERATIVE REPORT Page 1 of 1 X Mohit Reagan MD X PROCEDURE OPERATIVE NOTE
== END | disposition home or self-care (01) ==
LOC: COPS 05:59
DX: K22.10 Ulcer of esophagus without bleeding (principal); K44.9 Diaphragmatic hernia without obstruction or gangrene; K29.80 Duodenitis without bleeding; J45.909 Unspecified asthma, uncomplicated; I50.9 Heart failure, unspecified; J44.9 Chronic obstructive pulmonary disease, unspecified; K21.9 Gastro-esophageal reflux disease without esophagitis; M19.90 Unspecified osteoarthritis, unspecified site; F17.210 Nicotine dependence, cigarettes, uncomplicated; Z88.0 Allergy status to penicillin; Z88.1 Allergy status to other antibiotic agents; Z88.8 Allergy status to other drugs, medicaments and biological substances; Z79.899 Other long term (current) drug therapy; Z91.030 Bee allergy status; Z89.022 Acquired absence of left finger(s); Z98.890 Other specified postprocedural states
CPT/HCPCS: 87077